=== PATIENT | female | born 1990 | race Caucasian/White ===

== ENCOUNTER 2021-10-17 15:11 | Emergency (ER) | payer MEDICAID ==
[~2021-10-17] VITALS: Ht 160 cm; Wt 88.6 kg
[2021-10-17] MEDS ORDERED: PRD20T PO (15:38)
--- NOTE | 2021-10-17 15:39 | ED Upper Extremity ---
General Stated Complaint: HAND NUMBNESS Source: patient Exam Limitations: no limitations (ADRIAN ESCAMILLA APRN) History of Present Illness Date Seen by Provider: Oct 17, 2021 Time Seen by Provider: 15:36 Initial Comments To ER with numbness to the left hand including the thumb pointer and middle finger for 1 week. No known injury or cause. She is deaf. Onset: last week Severity: moderate Pain/Injury Location: left hand, left thumb, left 2nd finger, left 3rd finger Method of Injury: unknown Modifying Factors: Worse With Movement (ADRIAN ESCAMILLA APRN) Allergies and Home Medications Allergies Coded Allergies: No Known Drug Allergies (Unverified , 10/17/21) Patient Home Medication List Home Medication List Reviewed: Yes (ADRIAN ESCAMILLA APRN) Prednisone (Prednisone) 20 Mg Tab, 40 MG PO DAILY Prescribed by: ADRIAN ESCAMILLA on 10/17/21 1538 Review of Systems Constitutional: see HPI EENTM: see HPI Respiratory: no symptoms reported Cardiovascular: no symptoms reported Genitourinary: no symptoms reported Musculoskeletal: see HPI Skin: no symptoms reported Psychiatric/Neurological: No Symptoms Reported (ADRIAN ESCAMILLA APRN) Physical Exam Vital Signs Vital Signs - First Documented 10/17/21 15:22 Temp 36.3 Pulse 78 Resp 18 B/P (MAP) 121/78 (92) Pulse Ox 98 O2 Delivery Room Air (DWIGHT WARNER MD) Vital Signs Capillary Refill : (ADRIAN ESCAMILLA APRN) Height, Weight, BMI Height: '" Weight: lbs. oz. kg; BMI Method: General Appearance: WD/WN, no apparent distress, other (She is deaf but we can communicate via writing) HEENT: PERRL/EOMI, normal ENT inspection Neck: non-tender, full range of motion Respiratory: no respiratory distress, no accessory muscle use Gastrointestinal: normal bowel sounds, non tender Shoulder: normal inspection, non-tender Elbow/Forearm: normal inspection, non-tender Wrist: Yes normal inspection, Yes non-tender Hand: normal inspection, non-tender, Left (Positive Tinel sign. Brisk capillary refill at the fingertips) Neurologic/Psychiatric: alert, normal mood/affect, oriented x 3 Skin: normal color, warm/dry (ADRIAN ESCAMILLA APRN) Progress/Results/Core Measures Results/Orders Vital Signs/I&O 10/17/21 10/17/21 15:22 16:00 Temp 36.3 36.3 Pulse 78 78 Resp 18 18 B/P (MAP) 121/78 (92) 121/78 Pulse Ox 98 98 O2 Delivery Room Air Room Air (DWIGHT WARNER MD) Departure Impression Primary Impression: Carpal tunnel syndrome left hand Disposition: 01 HOME, SELF-CARE Condition: Stable Departure-Patient Inst. Decision time for Depature: 15:37 (ADRIAN ESCAMILLA APRN) Referrals: [facility] – [place] (PCP/Family) Primary Care Physician Patient Instructions: Carpal Tunnel Release, Carpal Tunnel Syndrome Add. Discharge Instructions: 1. Do the steroids and the splint. Especially do the splint at night. Return to ER for any worsening. If this fails to improve over the course of the next 1 to 2 weeks then follow-up with one of the orthopedic surgeons listed to discuss surgical intervention of this. Scripts Prednisone (Prednisone) 20 Mg Tab 40 MG PO DAILY, #6 TAB 0 Refills Prov: ADRIAN ESCAMILLA APRN 10/17/21 ATTENDING PHYSICIAN NOTE: I was physically present as attending physician in the emergency department during the care of this patient, but I was not directly involved in the decision making or delivery of care for this patient. (DWIGHT WARNER MD) ADRIAN ESCAMILLA APRN Oct 17, 2021 15:39 DWIGHT WARNER MD Oct 17, 2021 19:07
[2021-10-17 16:00] VITALS: BP 121/78
== END 2021-10-17 16:03 | disposition home or self-care (01) ==
LOC: ER 15:19
DX: G56.02 Carpal tunnel syndrome, left upper limb (principal); H91.90 Unspecified hearing loss, unspecified ear
CPT/HCPCS: 99281